=== PATIENT | female | born 1995 | race American Indian/Alaskan Native ===

== ENCOUNTER 2016-10-24 19:26 | Emergency (ER) | payer MEDICAID ==
[2016-10-24 19:37] VITALS: BP 112/74
[2016-10-24 20:36] LABS: Basophils % (Auto) 0.3 % (0.0-1.8); Mean Corpuscular HGB Conc 30 % (30-34); Mean Corpuscular Volume 73 fl (79-97); Platelet Count 256 K/mm3 (140-440); Red Blood Count 5.05 M/mm3 (3.65-5.03); Red Cell Distribution Width 14.6 % (13.2-15.2); White Blood Count 14.4 K/mm3 (4.5-11.0)
[2016-10-24 20:55] LABS: Anion Gap 19 mmol/L; BUN/Creatinine Ratio 11.42; Blood Urea Nitrogen 8 mg/dL (7-17); Carbon Dioxide 25 mmol/L (22-30); Chloride 99.6 mmol/L (98-107); Glucose 87 mg/dL (65-100); Potassium 4.2 mmol/L (3.6-5.0); Sodium 139 mmol/L (137-145)
[2016-10-24 21:16] LABS: Mean Corpuscular Hemoglobin 22 pg (28-32)
== END 2016-10-24 23:00 | disposition left against medical advice (07) ==
LOC: ED 19:26
DX: R07.9 Chest pain, unspecified (principal); M54.9 Dorsalgia, unspecified; M54.2 Cervicalgia; Z53.21 Procedure and treatment not carried out due to patient leaving prior to being seen by health care provider
CPT/HCPCS: 36415; 80048; 84484; 85025; 93005; 93010